=== PATIENT | male | born 1985 | race Caucasian/White ===

== ENCOUNTER 2017-06-05 16:33 | Emergency (ER) | payer OTHER ==
[~2017-06-05] VITALS: Ht 160 cm; Wt 59.0 kg
[2017-06-05 16:35] VITALS: BP 120/90; PULSE 89; RESP 18; TEMP 97.9; O2SAT 99
[2017-06-05] MEDS ORDERED: SODIUM CHLOR 0.9% 1000 ML INJ 1,000 ML IV SCH (17:16)
[2017-06-05] MEDS ORDERED: PANTOPRAZOLE INJ 80 MG in SODIUM CHLORIDE 0.9% INJ 100 ML IV SCH ×4 (17:30)
[2017-06-05] MEDS ORDERED: PANTOPRAZOLE INJ 80 MG in SODIUM CHLORIDE 0.9% INJ 35 ML IV ONE (17:30)
--- NOTE | 2017-06-05 17:58 | PD ---
HPI Chief Complaint: GI Complaint Time Seen by Provider: 17:09 Travel History International Travel<30 days: No Contact w/Intl Traveler<30days: No Traveled to known affect area: No History of Present Illness HPI 31-year-old male presents emergency department with a one-week history of hemoptysis. Patient states that approximately 1 week ago he had 2 episodes of bright red bloody streaked vomitus associated with mild epigastric abdominal pain and this recurred today. Says he notices the blood streaking at the end of vomiting. She states that he has taken a significant amount of ibuprofen over the last several months along with 2-3 alcoholic drinks a night. States that when these episodes occur, he has decreased appetite and has abdominal pain 9/10 pain in the morning an decreases to 4/10 throughout the afternoon. He has not taken any [id number] medications for his discomfort. Patient states he has also restarted tobacco use in the form of smoking. Patient denies previous episodes of this occurrence. Follows the [facility] for kidney stones. Denies fever, chills, chest pain, shortness of breath, fatigue. Last oral intake yesterday evening at 7p because he read that he shouldn't eat with these symptoms. PFSH Past Medical History Cancer: No Diabetes: No Psychiatric: No Seizures: No Thyroid Disease: No Ulcer: No Social History Alcohol Use: Yes Tobacco Use: Yes Substance Use: Yes ("weed") Allergies-Medications (Allergen,Severity, Reaction): Coded Allergies: No Known Allergies (Verified Allergy, Unknown, 06/05/17) Reported Meds & Prescriptions Reported Meds & Active Scripts Active Zofran (Ondansetron HCl) 4 Mg Tab 4 Mg PO Q8HR PRN 7 Days Famotidine 20 Mg Tab 20 Mg PO BID 14 Days Sucralfate 1 Gram Tab 1 Gm PO TID 7 Days on empty stomach Review of Systems Except as stated in HPI: all other systems reviewed are Neg Physical Exam Narrative GENERAL: wd, wn in NAD SKIN: Focused skin assessment warm/dry. HEAD: Atraumatic. Normocephalic. EYES: Pupils equal and round. No scleral icterus. No injection or drainage. ENT: No nasal bleeding or discharge. Mucous membranes pink and moist. NECK: Trachea midline. No JVD. CARDIOVASCULAR: Regular rate and rhythm. No murmur appreciated. RESPIRATORY: No accessory muscle use. Clear to auscultation. Breath sounds equal bilaterally. GASTROINTESTINAL: Abdomen soft, voluntary guarding, mildly tender in the left upper quadrant in midepigastric region. MUSCULOSKELETAL: No obvious deformities. No clubbing. No cyanosis. No edema. NEUROLOGICAL: Awake and alert. No obvious cranial nerve deficits. Motor grossly within normal limits. Normal speech. PSYCHIATRIC: Appropriate mood and affect; insight and judgment normal. Data Data Last Documented VS Vital Signs Date Time Temp Pulse Resp B/P (MAP) Pulse Ox O2 Delivery O2 Flow Rate FiO2 06/05/17 19:23 75 18 122/78 (93) 100 06/05/17 16:35 97.9 Orders Orders Complete Blood Count With Diff (06/05/17 17:16) Comprehensive Metabolic Panel (06/05/17 17:16) Lipase (06/05/17 17:16) Prothrombin Time / Inr (Pt) (06/05/17 17:16) Act Partial Throm Time (Ptt) (06/05/17 17:16) Urinalysis - C+S If Indicated (06/05/17 17:16) Iv Access Insert/Monitor (06/05/17 17:16) Ecg Monitoring (06/05/17 17:16) Oximetry (06/05/17 17:16) Sodium Chlor 0.9% 1000 Ml Inj (Ns 1000 M (06/05/17 17:16) Pantoprazole Inj (Protonix Inj) (06/05/17 17:30) Pantoprazole Inj (Protonix Inj) (06/05/17 17:30) Pantoprazole Inj (Protonix Inj) (06/05/17 17:30) Ct Abd/Pel W Iv Contrast(Rout) (06/05/17 ) Iohexol 350 Inj (Omnipaque 350 Inj) (06/05/17 18:18) Al-Mag Hy-Si 40-40-4 Mg/Ml Liq (Mag-Al P (06/05/17 19:15) Lidocaine 2% Viscous (Xylocaine 2% Visco (06/05/17 19:05) Ed Discharge Order (06/05/17 19:13) Labs Laboratory Tests Test 06/05/17 17:50 06/05/17 18:25 White Blood Count 8.7 TH/MM3 Red Blood Count 4.80 MIL/MM3 Hemoglobin 14.9 GM/DL Hematocrit 42.8 % Mean Corpuscular Volume 89.2 FL Mean Corpuscular Hemoglobin 31.0 PG Mean Corpuscular Hemoglobin Concent 34.8 % Red Cell Distribution Width 14.1 % Platelet Count 369 TH/MM3 Mean Platelet Volume 7.8 FL Neutrophils (%) (Auto) 58.2 % Lymphocytes (%) (Auto) 27.4 % Monocytes (%) (Auto) 12.3 % Eosinophils (%) (Auto) 1.3 % Basophils (%) (Auto) 0.8 % Neutrophils # (Auto) 5.1 TH/MM3 Lymphocytes # (Auto) 2.4 TH/MM3 Monocytes # (Auto) 1.1 TH/MM3 Eosinophils # (Auto) 0.1 TH/MM3 Basophils # (Auto) 0.1 TH/MM3 CBC Comment DIFF FINAL Differential Comment Prothrombin Time 12.0 SEC Prothromb Time International Ratio 1.2 RATIO Activated Partial Thromboplast Time 25.4 SEC Blood Urea Nitrogen 11 MG/DL Creatinine 0.86 MG/DL Random Glucose 93 MG/DL Total Protein 8.5 GM/DL Albumin 4.6 GM/DL Calcium Level 8.6 MG/DL Alkaline Phosphatase 68 U/L Aspartate Amino Transf (AST/SGOT) 34 U/L Alanine Aminotransferase (ALT/SGPT) 59 U/L Total Bilirubin 0.5 MG/DL Sodium Level 137 MEQ/L Potassium Level 3.9 MEQ/L Chloride Level 101 MEQ/L Carbon Dioxide Level 29.3 MEQ/L Anion Gap 7 MEQ/L Estimat Glomerular Filtration Rate 105 ML/MIN Lipase 135 U/L Urine Color LIGHT-YELLOW Urine Turbidity CLEAR Urine pH 7.0 Urine Specific [place] 1.008 Urine Protein NEG mg/dL Urine Glucose (UA) NEG mg/dL Urine Ketones NEG mg/dL Urine Occult Blood NEG Urine Nitrite NEG Urine Bilirubin NEG Urine Urobilinogen LESS THAN 2.0 MG/DL Urine Leukocyte Esterase NEG Urine RBC LESS THAN 1 /hpf Microscopic Urinalysis Comment CULT NOT INDICATED MDM Medical Decision Making Medical Screen Exam Complete: Yes Emergency Medical Condition: Yes Differential Diagnosis Gastric reflux, peptic ulcer disease, pancreatitis Narrative Course 31-year-old male presents emergency department with a one-week history of hemoptysis. Patient states that approximately 1 week ago he had 2 episodes of bright red bloody streaked vomitus associated with mild epigastric abdominal pain and this recurred today. Says he notices the blood streaking at the end of vomiting. She states that he has taken a significant amount of ibuprofen over the last several months along with 2-3 alcoholic drinks a night. States that when these episodes occur, he has decreased appetite and has abdominal pain 9/10 pain in the morning an decreases to 4/10 throughout the afternoon. He has not taken any [id number] medications for his discomfort. Patient states he has also restarted tobacco use in the form of smoking. Patient denies previous episodes of this occurrence. Follow[facility] the [facility] for [facility]. Denies fever, chills, chest pain, shortness of breath, fatigue. Last oral intake yesterday evening at 7p because he read that he shouldn't eat with these symptoms. Vital signs stable. Abdominal exam findings mild tenderness to palpation of the mid Epigastric in left upper quadrant area without radiation. No rebound tenderness. CBC & BMP Diagram 06/05/17 17:50 Total Protein 8.5 H, Albumin 4.6, Calcium Level 8.6, Alkaline Phosphatase 68, Aspartate Amino Transf (AST/SGOT) 34, Alanine Aminotransferase (ALT/SGPT) 59, Total Bilirubin 0.5 Last Impressions Abdomen/Pelvis CT 06/05/17 0000 Signed Impressions: Service Date/Time: Monday, June 05, 2017 18:05 - CONCLUSION: 1. No acute inflammatory process. 2. Several punctate nonobstructing right-sided renal calculi. 3. Mild distention of the urinary bladder. Stanford Herron MD Patient has aware that he does have kidney stones as being treated the [facility] for these. Patient does have a follow-up this week for this issue. Pantoprazole and GI cocktail administered in the emergency department today. Patient strongly advised to follow-up with her primary care physician within 2- 3 days. Advised to return to the emergency room for worsening or persistent symptoms. Advised to avoid triggers such as alcohol, anti-inflammatories, and spicy foods. Patient will be discharged with Zofran, sucralfate, and famotidine for outpatient use. Diagnosis Primary Impression: Hematemesis Qualified Codes: K92.0 - Hematemesis Additional Impression: GERD (gastroesophageal reflux disease) Qualified Codes: K21.9 - Gastro-esophageal reflux disease without esophagitis Referrals: [facility] Primary Care Physician Additional Instructions: Take her medication as prescribed. Avoid alcohol use, anti-inflammatories, spicy foods, sodas. Follow-up the gastrointestinal doctor as soon as possible. Follow-up the primary care physician within 1 week. If your symptoms worsen or persist return to the emergency department. Please give patient all labs and imaging studies. Scripts Ondansetron (Zofran) 4 Mg Tab 4 MG PO Q8HR Y for NAUSEA OR VOMITING for 7 Days, #14 TAB 0 Refills Prov: Yesenia Quintana 06/05/17 Famotidine (Famotidine) 20 Mg Tab 20 MG PO BID for Reflux for 14 Days, #28 TAB 0 Refills Prov: Yesenia Quintana 06/05/17 Sucralfate (Sucralfate) 1 Gram Tab 1 GM PO TID for Duodenal ulcer for 7 Days, #21 TAB 0 Refills on empty stomach Prov: Yesenia Quintana 06/05/17 Disposition: 01 DISCHARGE HOME Condition: Stable Yesenia Quintana Jun 05, 2017 17:58
[2017-06-05 18:12] LABS: AUTOMATED NEUTROPHIL # 5.1 TH/MM3 (1.8-7.7); BASOPHIL # 0.1 TH/MM3 (0-0.2); BASOPHIL % 0.8 % (0.0-2.0); EOSINOPHIL # 0.1 TH/MM3 (0-0.4); EOSINOPHIL % 1.3 % (0.0-4.0); HEMATOCRIT 42.8 % (39.0-51.0); HEMOGLOBIN 14.9 GM/DL (13.0-17.0); LYMPH % 27.4 % (9.0-44.0); LYMPHOCYTE # 2.4 TH/MM3 (1.0-4.8); MEAN CELL VOLUME 89.2 FL (80.0-100.0); MEAN CORPUSCULAR HGB CONC 34.8 % (32.0-36.0); MEAN PLATELET VOLUME 7.8 FL (7.0-11.0); MONO % 12.3 % (0.0-8.0); MONOCYTE # 1.1 TH/MM3 (0-0.9); NEUT % 58.2 % (16.0-70.0); PLATELET COUNT 369 TH/MM3 (150-450); RED CELL DISTRIBUTION WIDTH 14.1 % (11.6-17.2); WHITE BLOOD COUNT 8.7 TH/MM3 (4.0-11.0)
[2017-06-05 18:18] LABS: INTERNATIONAL NORMALIZED RATIO 1.2 RATIO
[2017-06-05] MEDS ORDERED: IOHEXOL 350 MG/ML 10 ML VIAL (for RAD DIAG) IVCONTRAST ONE (18:18)
--- NOTE | 2017-06-05 18:29 | RADRPT ---
EXAM DATE/TIME: 06/05/2017 18:05 [facility] COMPARISON: No previous studies available for comparison. INDICATIONS : Bloody emesis and diffuse abdomen pain today. IV CONTRAST: 69 cc Omnipaque 350 (iohexol) IV ORAL CONTRAST: No oral contrast ingested. RADIATION DOSE: 6.64 CTDIvol (mGy) MEDICAL HISTORY : None SURGICAL HISTORY : None. ENCOUNTER: Initial ACUITY: 1 day PAIN SCALE: 7/10 LOCATION: Bilateral abdomen TECHNIQUE: Volumetric scanning of the abdomen and pelvis was performed. Using automated exposure control and ad justment of the mA and/or kV according to patient size, radiation dose was kept as low as reasonably achievable to obtain optimal diagnostic quality images. DICOM format image data is available electro nically for review and comparison. FINDINGS: LOWER LUNGS: The visualized lower lungs are clear. LIVER: Homogeneous density without lesion. There is no dilation of the biliary tree. No calcified gallston es. SPLEEN: Normal size without lesion. PANCREAS: Within normal limits. KIDNEYS: Normal in size and shape. There is no mass or hydronephrosis. There are 3 punctate right-sided renal calculi. These measure 2-3 mm. ADRENAL GLANDS: Within normal limits. VASCULAR: There is no aortic aneurysm. BOWEL/MESENTERY: The stomach, small bowel, and colon demonstrate no acute abnormality. There is no free intraperitone al air or fluid. Normal appendix. ABDOMINAL WALL: Within normal limits. RETROPERITONEUM: There is no lymphadenopathy. BLADDER: No wall thickening or mass. Mildly distended. REPRODUCTIVE: Within normal limits. INGUINAL: There is no lymphadenopathy or hernia. MUSCULOSKELETAL: Within normal limits for patient age. CONCLUSION: 1. No acute inflammatory process. 2. Several punctate nonobstructing right-sided renal calculi. 3. Mild distention of the urinary bladder. Stanford Herron MD on June 05, 2017 at 18:25 Board Certified Radiologist. This report was verified electronically.
[2017-06-05 18:31] LABS: ALBUMIN 4.6 GM/DL (3.4-5.0); ALT (GPT) 59 U/L (12-78); AST (GOT) 34 U/L (15-37); BICARBONATE 29.3 MEQ/L (21.0-32.0); BLOOD UREA NITROGEN 11 MG/DL (7-18); CALCIUM 8.6 MG/DL (8.5-10.1); CHLORIDE 101 MEQ/L (98-107); CREATININE 0.86 MG/DL (0.60-1.30); GLOMERULAR FILTRATION RATE 105 ML/MIN (>89); GLUCOSE,RANDOM 93 MG/DL (74-106); LIPASE 135 U/L (73-393); SODIUM (NA) 137 MEQ/L (136-145)
[2017-06-05 18:33] LABS: ALKALINE PHOSPHATASE 68 U/L (45-117); TOTAL BILIRUBIN ADULT 0.5 MG/DL (0.2-1.0); TOTAL PROTEIN 8.5 GM/DL (6.4-8.2)
[2017-06-05] MEDS ORDERED: ZOFR4TAB PO (18:42)
[2017-06-05] MEDS ORDERED: SUCR1TAB PO (18:42)
[2017-06-05] MEDS ORDERED: FAMO20TA2 PO (18:42)
[2017-06-05 18:47] LABS: BILIRUBIN, URINE NEG (NEG); BLOOD, URINE NEG (NEG); GLUCOSE,URINE NEG (NEG); KETONE, URINE NEG (NEG); NITRITE,URINE NEG (NEG); URINE COLOR LIGHT-YELLOW (YELLW/STRAW); URINE LEUKOCYTE ESTERASE NEG (NEG)
[2017-06-05] MEDS ORDERED: LIDOCAINE VISCOUS 2% SOLN 15 ML UDC SWISH-SWAL STA (19:05)
[2017-06-05] MEDS ORDERED: ALUMINUM/MAGNESIUM/SIMETH 30 ML CUP PO ONE (19:15)
[2017-06-05 19:23] VITALS: BP 122/78
== END 2017-06-05 19:29 | disposition home or self-care (01) ==
LOC: NEPE 16:33
DX: K92.0 Hematemesis (principal); K21.9 Gastro-esophageal reflux disease without esophagitis; N20.0 Calculus of kidney; N32.89 Other specified disorders of bladder; Z72.0 Tobacco use; Z79.899 Other long term (current) drug therapy
CPT/HCPCS: 74177; 80053; 81001; 83690; 85025; 85610; 85730; 96365; 96366; 96368; 99285; C9113; J7030; Q9967